=== PATIENT | male | born 2000 | race African-American/Black ===

== ENCOUNTER 2020-12-17 21:50 | Emergency (ER) | payer OTHER ==
[~2020-12-17 21:50] MED LIST: AMOXICILLIN875 MG PO; ANUCORT-HC25 MG PR; BROMFED DM COU473 ML PO; IBUPROFEN800 MG PO; NAPROXEN500 MG PO; PREDNISONE 20MG20 MG PO; TESSALON PERLE100 MG PO
== END 2020-12-18 01:06 | disposition home or self-care (01) ==
LOC: FER 21:50
DX: S00.03XA Contusion of scalp, initial encounter (principal); H92.02 Otalgia, left ear; W50.0XXA Accidental hit or strike by another person, initial encounter; Y92.34 Swimming pool (public) as the place of occurrence of the external cause
CPT/HCPCS: 70450